=== PATIENT | female | born 1970 | race African-American/Black ===

== ENCOUNTER 2018-04-02 16:33 | Emergency (ER) | payer MEDICAID ==
[~2018-04-02] VITALS: Ht 160 cm; Wt 61.2 kg
[2018-04-02] MEDS ORDERED: SERTRALINE HCL50 MG ORAL (16:44)
[2018-04-02 17:05] VITALS: BP 141/54
--- NOTE | 2018-04-02 17:31 | Emergency Room Report ---
History of Present Illness General Chief Complaint: Eye Problems Source: Patient Present Illness HPI Patient states that she has an intermittent stye on her right lower lid. She states that it waxes and wanes in severity. She states she is tired of having this eye. She states it's irritating her eye and bothering her. She has no other complaints. Allergies: Coded Allergies: Dairy (Verified Allergy, Unknown, 04/02/18) Patient History Past Medical History: none, see triage record Social History: Denies: smoking, alcohol use, drug use Now: No Reviewed Nursing Documentation: PMH: Agreed; PSxH: Agreed Nursing Documentation-PMH Past Medical History: No History, Except For Review of Systems All Other Systems: negative except mentioned in HPI Physical Exam Vital Signs Date Time Temp Pulse Resp B/P (MAP) Pulse Ox O2 Delivery O2 Flow Rate FiO2 04/02/18 16:40 98.1 67 18 141/54 100 Room Air Sp02 EP Interpretation: reviewed, normal General Appearance: no apparent distress, alert, GCS 15, non-toxic Head: normocephalic, atraumatic Eyes: right eye other - Lower R. lid with pea-sized stye. Conjuctiva normal.; left eye normal inspection; bilateral eye PERRL ENT: hearing grossly normal, normal pharynx, no angioedema, normal voice Neck: full range of motion, supple/symm/no masses Respiratory: no respiratory distress, no retraction, no accessory muscle use, speaking full sentences Rectal: deferred Musculoskeletal: back normal, gait/station normal, normal range of motion, non- tender Neurologic: alert, oriented x3, responsive, motor strength/tone normal, sensory intact, speech normal Psychiatric: judgement/insight normal, memory normal, mood/affect normal, no suicidal/homicidal ideation Skin: normal color, no rash, warm/dry, well hydrated, other - See above in Eye exam Medical Decision Making Diagnostic Impression: Primary Impression: Hordeolum externum (stye) ER Course This patient has findings on exam consistent with a stye. There is no evidence of infection or periorbital cellulitis. There is no conjunctival findings of may be concern for conjunctivitis. The patient was educated on warm compresses , not using eye makeup and follow-up with an pet resort concierge. At this time, there is no evidence of emergency medical condition. The patient is given return precautions and follow-up instructions. Last Vital Signs Date Time Temp Pulse Resp B/P (MAP) Pulse Ox O2 Delivery O2 Flow Rate FiO2 04/02/18 17:05 98.1 56 18 141/54 100 Room Air Disposition: HOME, SELF-CARE Condition: Stable Bela Barton DO Apr 02, 2018 17:31
[2018-04-02] MEDS ORDERED: ERYTHROMYCIN3.5 GM RIGHT EYE (17:47)
[2018-04-02 18:06] VITALS: BP 141/54
== END 2018-04-02 18:10 | disposition home or self-care (01) ==
LOC: EMR 18:02
DX: H00.011 Hordeolum externum right upper eyelid (principal); F17.200 Nicotine dependence, unspecified, uncomplicated
CPT/HCPCS: 99282